=== PATIENT | male | born 1945 | race African-American/Black ===

== ENCOUNTER 2016-12-29 13:58 | Emergency (ER) | payer OTHER ==
--- NOTE | ~2016-12-29 | CT2 ---
[facility] A Service of [facility] RADIOLOGY TEXT RESULTS PATIENT: RAY CAMPBELL LOCATION: [facility] : 49 UNIT #: [id number] AGE: [address]: Bong Gomez DO SEX: M ORDER DR: [id number] [facility] [address] [place], [place] [address] [id number] E MR#: [id number] [facility] #: [id number] NAME: RAY CAMPBELL : 1945 SEX: M STUDY DATE/TIME: 12/29/2016 16:40 UNIT: [facility] ROOM: STUDY DESCRIPTION: CT Abd and Pelv W Cont Attending Physician: Bong Goemz D.O. Ordering Physician: Bong Gomez D.O. Primary Care Physician: No Primary Care Physician MEDICAL IMAGING REPORT This report is preliminary unless electronic signature is present EXAM CT abdomen and pelvis with oral and IV contrast. HISTORY Constipation for [address] exam was performed with one or more of the following radiation dose reduction techniques: automatic exposure control, adjustment of mA and/or kV according to patient size, and iterative reconstruction. FINDINGS CT abdomen and pelvis was performed with oral and IV contrast. CT ABDOMEN: Small hiatal hernia. Fatty infiltration of the liver. No hepatic mass or biliary dilatation. The gallbladder, spleen, pancreas, and adrenal glands are normal. Incidental bilateral renal cysts, measuring up to 2.7 cm in anterior mid-left kidney. Incidental left-sided infrarenal IVC. Moderate amount of stool throughout the colon. No small bowel dilatation. CT PELVIS: Normal appendix. No dilatation of the sigmoid colon or rectum. No free fluid or inflammatory stranding. Incidental prostatic calcifications. Single enlarged distal left external iliac node measuring 1.5 cm. No additional adenopathy in the pelvis. No free fluid. The urinary bladder is normal. IMPRESSION 1. Moderate amount of stool throughout the majority of the colon but no distension of the sigmoid colon or rectum. No small bowel dilatation. [facility] A Service of [facility] RADIOLOGY TEXT RESULTS PATIENT: RAY CAMPBELL [facility] [id number] : [birth year] UNIT #: [id number] AGE: [address]: Bong Gomez DO SEX: M ORDER DR: 2. No inflammatory stranding in the abdomen or pelvis. 3. Normal appendix. 4. Single mildly enlarged distal left external iliac node measuring 1.5 cm could be reactive or inflammatory. No additional adenopathy. 5. Small hiatal hernia. 6. Incidental left-sided infrarenal IVC. Dictated by... Reji Jacobs M.D. THIS IS AN ELECTRONICALLY VERIFIED REPORT Reji Jacobs M.D. at 12/29/2016 11:29 PM [place]/fidencio TD: 12/29/2016 21:18 JOB #: [id number] MEDICAL IMAGING REPORT Page 1 of 1 COPY
[2016-12-29 15:32] LABS: BASOPHIL# 0.1 X10e3 (0-0.3); BASOPHIL% 0.7 % (0-2.5); EOSINOPHIL# 0.1 X10e3 (0-0.7); EOSINOPHIL% 0.9 % (0.0-7.0); HEMATOCRIT 48.7 % (38.0-50.0); HEMOGLOBIN 15.7 gm/dL (13.0-16.0); LYMPHOCYTE% 21.3 % (17.0-45.0); MEAN CELL VOLUME 87.7 FL (83-96); MEAN CORPUSCULAR HEMOGLOBIN 28.2 PG (28-34); MEAN CORPUSCULAR HGB CONC 32.2 g/dL (30-36); MEAN PLATELET VOLUME 8.1 FL (6.5-11.5); MONOCYTE# 0.7 X10e3 (0-1.0); MONOCYTE% 7.5 % (3.0-12.0); NEUTROPHIL# 6.5 X10e3 (1.5-7.1); NEUTROPHIL% 69.6 % (40-75); PLATELET COUNT 315 X10e3 (140-420); RED BLOOD COUNT 5.55 X10e (3.90-5.60); RED CELL DISTRIBUTION WIDTH 13.6 % (11.0-15.5); WHITE BLOOD COUNT 9.3 X10e3 (4.0-10.5)
[2016-12-29 15:42] LABS: ALBUMIN SERUM 4.7 g/dL (3.5-5.0); BILIRUBIN, DIRECT 0.3 mg/dL (0.0-0.2); BILIRUBIN,INDIRECT 0.9 mg/dL (0.0-0.9); BILIRUBIN,TOTAL 1.2 mg/dL (0.2-2.0); BUN/CREATININE RATIO 13.33; CALCIUM SERUM 9.8 mg/dL (8.4-10.2); CREATININE SERUM 1.2 mg/dL (0.6-1.4); DIFF IND NO; GLOM FILT RATE Estimated 71.1 mL/min (>60); POTASSIUM 4.3 mmol/L (3.5-5.1); PROTEIN TOTAL SERUM 8.3 g/dL (6.0-8.3)
[2016-12-29 15:43] LABS: PARTIAL THROMBOPLASTIN TIME 27.6 SECONDS (23.5-31.3); PROTHROMBIN TIME (PATIENT) 10.7 SECONDS (9.6-11.5)
[2016-12-29 18:10] LABS: URINE SOURCE CLEAN CATCH
[2016-12-29 18:18] LABS: URINE APPEARANCE CLEAR; URINE BILIRUBIN NEG (NEG); URINE BLOOD NEG (NEG); URINE COLOR YELLOW; URINE GLUCOSE NEG (NEG); URINE KETONE NEG (NEG); URINE LEUKOCYTE ESTERASE TRACE (NEG); URINE NITRATE NEG (NEG); URINE PROTEIN NEG (NEG); URINE SPECIFIC GRAVITY 1.043 (1.003-1.035)
[2016-12-29 18:20] LABS: URBCS1 AUWI 0-2 /[HPF] (0-2); URINE BACTERIA AUWI NEG (NEGATIVE); URINE SQUAMOUS EPITHELIAL CELL NONE SEEN /[HPF]
[2016-12-29 18:23] LABS: CULTURE INDICATED? NO
== END 2016-12-29 19:16 | disposition home or self-care (01) ==
LOC: CED 13:58
PROVIDERS: Emergency Medicine
DX: K59.00 Constipation, unspecified (principal); R10.9 Unspecified abdominal pain; R59.0 Localized enlarged lymph nodes; Z88.0 Allergy status to penicillin; E78.5 Hyperlipidemia, unspecified; I10 Essential (primary) hypertension; Z95.5 Presence of coronary angioplasty implant and graft
CPT/HCPCS: 36415; 74177; 80048; 80076; 81003; 83690; 85025; 85610; 85730; 96374; 99284; J2405; Q9967